=== PATIENT | female | born 1955 | race Native Hawaiian/Other Pacific Islander ===

== ENCOUNTER 2018-04-05 18:46 | Outpatient (CLI) | payer OTHER ==
[~2018-04-05 18:46] MED LIST: AVIDOXY100 MG OR; BUPR150T PO; FURO20TA67 PO; LEVO0.117 PO; METF500T PO; POTA20TA4 PO; ZOCOR80 MG OR
[2018-04-05] MEDS ORDERED: PROZAC10 MG PO (19:07)
[2018-04-05] MEDS ORDERED: OMEPRAZOLE20 M1 (19:08)
[2018-04-05] MEDS ORDERED: LISI10TA11 PO (19:10)
[2018-04-05] MEDS ORDERED: METOPROLOL25 M1 PO (19:10)
== END 2018-04-05 18:53 | disposition short-term general hospital (02) ==
LOC: AMB 18:46
DX: R42 Dizziness and giddiness (principal); R11.2 Nausea with vomiting, unspecified
CPT/HCPCS: A0425; A0427

== ENCOUNTER 2018-04-05 18:59 | Emergency (ER) | payer OTHER ==
[~2018-04-05] VITALS: Ht 157.5 cm; Wt 77.1 kg
[2018-04-05] MEDS ORDERED: PROZAC10 MG PO (19:07)
[2018-04-05] MEDS ORDERED: OMEPRAZOLE20 M1 (19:08)
[2018-04-05] MEDS ORDERED: METOPROLOL25 M1 PO (19:10)
[2018-04-05] MEDS ORDERED: LISI10TA11 PO (19:10)
[2018-04-05 20:20] LABS: PLATELET COUNT 251 K/uL (152-353)
[2018-04-05 20:23] LABS: POTASSIUM 3.7 mmol/L (3.6-5.2)
[2018-04-05 21:02] VITALS: BP 157/88; TEMP 98.2
== END 2018-04-05 21:09 | disposition home or self-care (01) ==
LOC: ED 18:59
PROVIDERS: Specialist
DX: H81.10 Benign paroxysmal vertigo, unspecified ear (principal)
CPT/HCPCS: 36415; 80053; 83735; 84100; 85027; 96361; 96374; 99284; J2550

== ENCOUNTER 2022-10-12 09:13 | Outpatient (CLI) | payer OTHER ==
[~2022-10-12 09:13] MED LIST changes: +LISI10TA11 PO; +METOPROLOL25 M1 PO; +OMEPRAZOLE20 M1; +PROZAC10 MG PO
== END 2022-10-12 18:50 | disposition home or self-care (01) ==
LOC: MAMMO 09:13
PROVIDERS: ATTEND Nurse Practitioner Family
DX: N64.4 Mastodynia (principal); R06.02 Shortness of breath; R05.3 Chronic cough
CPT/HCPCS: G0279

== ENCOUNTER 2023-03-09 09:23 | Emergency (ER) | payer OTHER ==
[~2023-03-09] VITALS: Ht 157.5 cm; Wt 99.8 kg
[2023-03-09 09:28] VITALS: TEMP 98.5
[2023-03-09 10:48] VITALS: BP 162/88
== END 2023-03-09 10:48 | disposition home or self-care (01) ==
LOC: ED 09:23
DX: S30.0XXA Contusion of lower back and pelvis, initial encounter (principal); W19.XXXA Unspecified fall, initial encounter
CPT/HCPCS: 96372; 99282; J1100

== ENCOUNTER 2023-03-23 14:28 | Emergency (ER) | payer OTHER ==
[~2023-03-23] VITALS: Ht 157.5 cm; Wt 99.8 kg
[2023-03-23 14:38] VITALS: TEMP 97.5
[2023-03-23 17:36] VITALS: BP 135/74
== END 2023-03-23 17:37 | disposition home or self-care (01) ==
LOC: ED 14:28
DX: S62.101A Fracture of unspecified carpal bone, right wrist, initial encounter for closed fracture (principal); W19.XXXA Unspecified fall, initial encounter
CPT/HCPCS: 99283